=== PATIENT | female | born 1965 | race Caucasian/White ===

== ENCOUNTER 2022-04-10 07:33 | Day surgery (SDC) | payer OTHER ==
[~2022-04-10] VITALS: Ht 170.2 cm; Wt 82.0 kg
[~2022-04-10 07:33] MED LIST: CIPR500 PO; ESCI10 PO; HYDACE5 PO; OMEP10ER PO; PHENA100 PO; PROM25 PO; TRAZ100 PO
--- NOTE | 2022-04-10 08:43 | NUR ---
04/10/22 0843 Maru Schmitz History, Chart, Medications and Allergies reviewed before start of procedure. Patient confirms NPO status and agrees with scheduled surgery. 3-LEAD EKG REVIEWED WITH PHYSICIAN PRIOR TO START OF PROCEDURE. MONITOR INTACT WITH CONTINUOUS PULSE OXIMETRY AND INTERMITTENT BP. PATIENT DETERMINED TO BE ASA APPROPRIATE FOR PROPOFOL SEDATION PRIOR TO START OF PROCEDURE BY
--- NOTE | 2022-04-10 09:49 | NUR ---
Patient up to Ambulate independently. Gait steady. Discharge instructions reviewed with patient. Patient verbalizes understanding. Copy given to patient to take home. History, Chart, Medications and Allergies reviewed before start of procedure.Patient States Post-Procedure ride home has been arranged. Discharged via wheelchair to private car for ride home.
== END 2022-04-10 09:51 | disposition home or self-care (01) ==
LOC: ORSCMMR 07:33 → ORD 08:30 → ORSCMMR 08:30
PROVIDERS: Internal Medicine Gastroenterology
PROC: 0DBN8ZX Excision of Sigmoid Colon, Via Natural or Artificial Opening Endoscopic, Diagnostic (ICD-10-PCS; principal; 2022-04-10 08:30)
DX: Z12.11 Encounter for screening for malignant neoplasm of colon (principal); K63.5 Polyp of colon; I25.10 Atherosclerotic heart disease of native coronary artery without angina pectoris; Z79.899 Other long term (current) drug therapy
CPT/HCPCS: 88305; J2704; J7120